=== PATIENT | male | born 1965 | race Caucasian/White ===

== ENCOUNTER 2017-10-26 17:55 | Emergency (ER) | payer OTHER ==
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
[2017-10-26 18:04] VITALS: BP 136/65; PULSE 61; TEMP 97.9; BMI 31.4
[2017-10-26] MEDS ORDERED: KETOROLAC TROMETHAMINE 60 MG/2 ML VIAL IM ONE (18:10)
[2017-10-26] MEDS ORDERED: IBUPROFEN 400 MG TABLET (FP) PO ONE ×2 (18:21→18:24)
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
== END 2017-10-26 18:50 | disposition home or self-care (01) ==
LOC: JERFT 17:55
DX: S29.8XXA Other specified injuries of thorax, initial encounter (principal); V43.52XA Car driver injured in collision with other type car in traffic accident, initial encounter; Y92.414 Local residential or business street as the place of occurrence of the external cause; Y93.89 Activity, other specified; Y99.8 Other external cause status
CPT/HCPCS: 72070-TC-FY; 99281-25